=== PATIENT | male | born 1965 | race Caucasian/White ===

== ENCOUNTER 2016-12-26 08:18 | Emergency (ER) | payer SELFPAY ==
[~2016-12-26] VITALS: Ht 177.8 cm; Wt 93.2 kg
[2016-12-26 08:20] VITALS: BP 133/82; PULSE 60; RESP 15; O2SAT 99
--- NOTE | 2016-12-26 08:52 | ED.REPORT ---
HPI-Extremity Problem Lower Date of Service Dec 26, 2016 ED Provider: Tucker Lilly M. MD The pt is a 51 y/o male w/ a hx of HTN presenting to the ED due to a L foot injury yesterday. He reports stepping out of car and something going "snap". The pt is unable to bear weight on that foot. Occasionally the pain radiates up the medial side of his calf. Denies any numbness in toes. Nursing Notes Stated Complaint: LT FOOT INJURY Chief Complaint: Extremity Trauma Nursing Notes Reviewed: Yes Allergies: Coded Allergies: No Known Allergies (Unverified , 12/26/16) Scheduled PRN Ibuprofen (Ibuprofen) 800 Mg Tablet 800 MG PO TID PRN PRN For Pain General Time Seen by MD: 08:51 Chief Complaint Foot injury left Hx Obtained From: Patient Arrived By: Walk-in Onset Occurred: Yesterday Symptom Duration: Since onset Caused by: Accidental Recent Healthcare: No recent doctor visit, No recent hospitalization Similar Sx Previous: No Past Medical History Past Medical History HTN Past Surgical History None reported Smoking History Unknown if Ever Smoker Social History Other Social History: Good social support Ambulatory Status Independent Review of Systems Musculoskeletal: Reports: Extremity pain (L foot ) Neurologic: Reports: Problem walking, Denies: Numbness Complete sys rev & neg: except as marked. Physical Exam Initial Vital Signs Vital Signs (First) Date Time Temp Pulse Resp B/P Pulse Ox O2 Delivery O2 Flow Rate FiO2 12/26/16 08:20 36.3 60 15 133/82 99 Room Air Initial VS: Reviewed General/Constitutional: Well-developed, Well-nourished Head / Eyes: Atraumatic, Normocephalic, PERRL ENT: Mucous membranes moist, Conjunctiva normal, No scleral icterus Neck: Supple, Non-tender, Full range of motion Respiratory: Breath sounds normal, Clear to auscultation, No respiratory distress Cardiovascular: Regular rate & rhythm, Heart sounds normal, Intact distal pulses Upper Extremities: Vascular intact, Neuro intact, No swelling, No tenderness Skin: Warm, Dry, No cyanosis Neurologic: Alert, Oriented, Nonfocal Psychiatric: Mood/affect normal, Behavior normal, Normal thought content Lower Extremity / Pelvis / MS: No deformity, Neurologic intact, Vascular intact Ankle / Foot: Neurologic intact, Vascular intact Tender at base of 1st metatarsal of L foot R medial midfoot tenderness Interpretation & Diagnostics X-Ray Interpretation Xray Interpretation: Impression: No fracture or dislocation. If clinical symptoms persist or clinical suspicion for pathology is high, a repeat examination in 7-10 days, or advanced imaging such as CT or MRI is suggested for further evaluation. Dictated by: Dawit Torrez M.D. on 12/26/16 at 8:57 Approved by: Dawit Torrez M.D. on 12/26/16 at 9:07 X-Ray Ordered: Foot left Re-Eval/Medical Decision Med Decision/Clinical Course 51-year-old male presenting with left foot pain after stepping on it wrong earlier today. His x-ray is negative. He is very tender at the base of his left first metatarsal. He is neurovascularly intact. He will placed in a walking boot with crutches with weightbearing as tolerated. Follow-up with primary doctor in several days for recheck. Re-Evaluation/Progress : Time of Eval: 09:37 Re-Evaluation/Progress Note: Pt rechecked. Informed pt of plan for treatment. Pt understands and agrees with plan for treatment. F/U instructions and RTER warnings given. All questions addressed. Counseled Regarding: Diagnosis, Lab results, Need for follow-up, When/why to return to ED Discharge & Departure Impression: Primary Impression: Injury of left foot Encounter type: initial encounter Qualified Code: S99.922A - Unspecified injury of left foot, initial encounter Disposition: Home Discharge Condition All VS Reviewed: Yes Condition: Stable Patient Instructions: Crutch Instructions (ED) Additional Instructions: Thank for you entrusting us with your care today. You were diagnosed with a left foot injury. There were no signs of fracture but given your tenderness we will put you in a walking boot. You may begin to put weight on your foot as tolerated and use the crutches as needed to take your weight off of it. Follow up with your PCP in three days for recheck. Please return to the emergency department if you experience any new or worsening symptoms. I hope you feel better soon. Referrals: [facility] Scribe Attestation Portions of this note were transcribed by Florentino Stafford. I, Dr. Lilly personally performed the history, physical exam and medical decision-making; I reviewed and confirmed the accuracy of the information in the transcribed note. Signed by: Deana Deluca, 12/26/16 and [id number]. copies to: [facility] Tucker Lilly MD Dec 26, 2016 08:51 Florentino Stafford Dec 26, 2016 09:39
[2016-12-26] MEDS ORDERED: IBUP800T28 PO (09:59)
[2016-12-26] MEDS ORDERED: HYDR-4003 PO (09:59)
[2016-12-26 11:03] VITALS: BP 133/82; PULSE 60; RESP 15; O2SAT 99
--- NOTE | 2016-12-26 11:06 | DRSVH ---
PROCEDURE: X-RAY LEFT FOOT COMPLETE, MINIMUM THREE VIEWS ([id number]) INDICATIONS: PAIN L GREAT TOE AND SUPERIOR ASPECT FOOT TECHNIQUE: 3 views of the foot were acquired. COMPARISON: None. FINDINGS: Bones: No fractures or dislocations. No suspicious bony lesions. Soft tissues: No tibiotalar joint effusion. Achilles tendon appears normal. IMPRESSION: No fracture or dislocation. If clinical symptoms persist or clinical suspicion for patho logy is high, a repeat examination in 7-10 days, or advanced imaging such as CT or MRI is suggested f or further evaluation. Dictated by: Dawit Torrez M.D. on 12/26/2016 at 8:57 Approved by: Dawit Torrez M.D. on 12/26/2016 at 9:07
== END 2016-12-26 11:04 | disposition home or self-care (01) ==
LOC: SED 08:18
DX: S99.922A Unspecified injury of left foot, initial encounter (principal); X50.9XXA Other and unspecified overexertion or strenuous movements or postures, initial encounter; Y93.89 Activity, other specified; Y92.9 Unspecified place or not applicable; Y99.9 Unspecified external cause status; I10 Essential (primary) hypertension
CPT/HCPCS: 73630; 96372; 99284; J1885